=== PATIENT | female | born 1985 | race Caucasian/White ===

== ENCOUNTER 2016-10-05 12:12 | Emergency (ER) | payer OTHER ==
[~2016-10-05 12:12] MED LIST: ACET50TA PO; ANUS2.5C2 EXT; DOCU10ELUD PO; IBUP600T26 PO; MOM30SS PO
[2016-10-05] MEDS ORDERED: KETOROLAC 30 MG/ML VIAL (J1885) IM ONE (12:45)
--- NOTE | 2016-10-05 13:45 | REP ---
CHEST, PORTABLE, SINGLE VIEW: COMPARISON: 04/28/2015. There is no evidence of acute infiltrate. No pleural effusion is seen. The heart is normal in size. The mediastinal silhouette is unremarkable. The visualized osseous structures are intact. IMPRESSION: No acute pulmonary disease. Signed by Spike Vaughn MD 10/05/2016 05:06 P
[2016-10-05] MEDS ORDERED: BICILLIN L-A 2,400,000 UNIT/4 ML SYRINGE (J0561-24)PENICILLIN G BENZATINE IM ONE (14:45)
[2016-10-05 15:50] VITALS: BP 147/67
--- NOTE | 2016-10-06 10:36 | ECGEPIP ---
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
== END 2016-10-05 16:24 | disposition home or self-care (01) ==
LOC: EDBD 12:12 → M ED 12:52
DX: J02.0 Streptococcal pharyngitis (principal); R07.9 Chest pain, unspecified; Z79.899 Other long term (current) drug therapy
CPT/HCPCS: 71010; 87804; 87880; 93005; 96372; 99283; J0561; J1885

== ENCOUNTER 2017-10-27 18:53 | Emergency (ER) | payer SELFPAY, OTHER | END 2017-10-27 21:51 | disposition home or self-care (01) | LOC: M ED 18:53 | DX: H60.92 Unspecified otitis externa, left ear (principal); H66.92 Otitis media, unspecified, left ear; J30.2 Other seasonal allergic rhinitis | CPT/HCPCS: 99282 ==

== ENCOUNTER → 2018-06-08 | Outpatient (REF) | payer OTHER ==
[2018-06-08 19:40] LABS: HEMATOCRIT 43.8 % (36.0-47.0); HEMOGLOBIN 13.8 g/dl (12.0-15.5); MEAN CORPUSCULAR HEMOGLOBIN 25.6 pg (27.0-33.0); MEAN CORPUSCULAR HGB CONC 31.5 g/dl (32.0-36.5); MEAN CORPUSCULAR VOLUME 81.3 fl (80.0-96.0); PLATELET COUNT, AUTOMATED 228 10^3/uL (150-450); RED BLOOD COUNT 5.39 10^6/uL (4.00-5.40); RED CELL DISTRIBUTION WIDTH 13.2 % (11.5-14.5); WHITE BLOOD COUNT 5.6 10^3/uL (4.0-10.0)
[2018-06-08 20:12] LABS: ALBUMIN 3.3 GM/DL (3.2-5.2); ALBUMIN/GLOBULIN RATIO 0.92 (1.00-1.93); ALKALINE PHOSPHATASE 62 U/L (45-117); ALT/SGPT 34 U/L (12-78); ANION GAP 9 MEQ/L (8-16); AST/SGOT 23 U/L (7-37); BILIRUBIN,TOTAL 0.5 MG/DL (0.2-1.0); BLOOD UREA NITROGEN 7 MG/DL (7-18); CALCIUM LEVEL 8.6 MG/DL (8.5-10.1); CARBON DIOXIDE LEVEL 26 MEQ/L (21-32); CHLORIDE LEVEL 106 MEQ/L (98-107); CHOLESTEROL LEVEL 156 MG/DL (<200); CHOLESTEROL RISK RATIO 3.804 (<5); CREATININE FOR GFR 0.84 MG/DL (0.55-1.30); GLOMERULAR FILTRATION RATE > 60.0 (>60); GLUCOSE, FASTING 89 MG/DL (70-100); HDL CHOLESTEROL 41 MG/DL (>40); LDL CHOLESTEROL 97 MG/DL (<100); NON-HDL-C 115 MG/DL; POTASSIUM SERUM 3.7 MEQ/L (3.5-5.1); SODIUM LEVEL 141 MEQ/L (136-145); TOTAL 25(OH) VITAMIN D 23.4 NG/ML (30.0-100.0); TOTAL PROTEIN 6.9 GM/DL (6.4-8.2); TRIGLYCERIDES LEVEL 90 MG/DL (<150)
== END ==
LOC: M SFHCCLAY 10:15
DX: J32.9 Chronic sinusitis, unspecified (principal); Z13.6 Encounter for screening for cardiovascular disorders; Z13.21 Encounter for screening for nutritional disorder; R53.83 Other fatigue

== ENCOUNTER → 2020-09-17 | Outpatient (REF) | payer BC, OTHER ==
[~2020-09-17] MED LIST changes: -ACET50TA PO; +BACT800T5 PO; -DOCU10ELUD PO; +DOCU5LIQ PO; +FLON1SPR; +MAPA500T17 PO; +[UNRECOGNIZED DRUG - OTHER] OD
[2020-09-17 11:39] LABS: BASO # 0.1 10^3/uL (0.0-0.2); BASO % 0.8 % (0.0-1.0); EOS # 0.2 10^3/uL (0.0-0.5); EOS % 2.4 % (0.0-3.0); HEMATOCRIT 42.9 % (36.0-47.0); HEMOGLOBIN 13.6 g/dl (12.0-15.5); LYMPH # 2.5 10^3/uL (1.5-5.0); LYMPH % 28.3 % (24.0-44.0); MEAN CORPUSCULAR HGB CONC 31.7 g/dl (32.0-36.5); MEAN CORPUSCULAR VOLUME 81.9 fl (80.0-96.0); MONO # 0.7 10^3/uL (0.0-0.8); MONO % 7.4 % (0.0-5.0); NEUTROPHILS # 5.4 10^3/uL (1.5-8.5); NEUTROPHILS % 60.9 % (36.0-66.0); PLATELET COUNT, AUTOMATED 232 10^3/uL (150-450); RED BLOOD COUNT 5.24 10^6/uL (4.00-5.40); WHITE BLOOD COUNT 8.9 10^3/uL (4.0-10.0)
[2020-09-17 12:29] LABS: ALBUMIN 3.4 GM/DL (3.2-5.2); ALT/SGPT 19 U/L (12-78); BILIRUBIN,TOTAL 0.4 MG/DL (0.2-1.0); BLOOD UREA NITROGEN 6 MG/DL (7-18); CALCIUM LEVEL 8.9 MG/DL (8.5-10.1); CARBON DIOXIDE LEVEL 29 MEQ/L (21-32); CHLORIDE LEVEL 104 MEQ/L (98-107); CHOLESTEROL LEVEL 159 MG/DL (<200); CHOLESTEROL RISK RATIO 4.297 (<5); CREATININE FOR GFR 0.73 MG/DL (0.55-1.30); FREE T4 1.09 NG/DL (0.76-1.46); GLOMERULAR FILTRATION RATE > 60.0 (>60); GLUCOSE, FASTING 97 MG/DL (70-100); HDL CHOLESTEROL 37 MG/DL (>40); LDL CHOLESTEROL 93 MG/DL (<100); NON-HDL-C 122 MG/DL; POTASSIUM SERUM 3.8 MEQ/L (3.5-5.1); SODIUM LEVEL 140 MEQ/L (136-145); THYROID STIMULATING HORMONE 0.904 uIU/ML (0.358-3.740); TOTAL 25(OH) VITAMIN D 24.9 NG/ML (30.0-100.0); TOTAL PROTEIN 6.4 GM/DL (6.4-8.2); TRIGLYCERIDES LEVEL 144 MG/DL (<150)
== END ==
LOC: M SFHCCLAY 08:36
PROVIDERS: ATTEND Physician Assistant
DX: Z00.00 Encounter for general adult medical examination without abnormal findings (principal); E66.09 Other obesity due to excess calories

== ENCOUNTER → 2020-09-22 | Outpatient (CLI) | payer BC ==
--- NOTE | 2020-09-22 10:10 | REP ---
INDICATION: N63.20 LT BREAST LUMP. Cyclic Leonor present left central breast lump. The patient reports that this is not palpable at the time of this examination. COMPARISON: no comparison breast imaging. TECHNIQUE: Bilateral CC and MLO) view(s) were taken. 3D tomography was carried out. Targeted left breast sonography was performed. FINDINGS: Breast parenchyma is heterogeneously dense in a pattern which may inhibit the sensitivity of mammography. No dominant density is seen on either side. No architectural distortion, mass, microcalcification, or worrisome skin changes appreciated. No mammographically suspicious finding. The Volpara volumetric breast density pattern is C. Targeted left breast sonographic findings: Scanning in the left central breast in the area where the patient intermittently feels a lump shows heterogeneous fibroglandular background echotexture. No cyst or mass is seen by ultrasound. In the retroareolar region, there are 1 or 2 mildly dilated subareolar ducts in the left breast. No suspicious sonographic finding.. IMPRESSION: BIRADS/ACR category 2 benign mammographic and sonographic findings.. This patient's Tyrer-Cuzick lifetime breast cancer risk assessment score is 10.9%. This mammogram was interpreted with the aid of an FDA-approved computer-aided detection system. The patient states she had a clinical breast exam in over a year ago. The patient letter being requested is M2 dense. RECOMMENDATION: Repeat screening mammography recommended 1 year (for women over 40). Clinical follow-up regarding the possibility of a palpable lump. This negative report should not dissuade 1 from biopsy of a palpable lump depending on his clinical characteristics. <Electronically signed by Kenny Priest > 09/22/20 1758
== END ==
LOC: M WHC 08:23
PROVIDERS: ATTEND Physician Assistant
DX: N63.20 Unspecified lump in the left breast, unspecified quadrant (principal)
CPT/HCPCS: 76642; 77066; G0279

== ENCOUNTER 2023-01-05 19:25 | Emergency (ER) | payer BC, OTHER ==
[~2023-01-05] VITALS: Ht 172.7 cm; Wt 98.3 kg
[2023-01-05] MEDS ORDERED: PROPARACAINE 0.5% OPHTH SOL 15ML OS ONE (20:10)
[2023-01-05] MEDS ORDERED: FLUORESCEIN OPHTH 1MG STRIP OS ONE (20:10)
[2023-01-05] MEDS ORDERED: OFLOXACIN 0.3 % (OCUFLOX) OPTH SOL 5ML OS ONE (20:35)
[2023-01-05] MEDS ORDERED: CETI-24 PO (20:36)
[2023-01-05] MEDS ORDERED: OFLO5DRO OS (20:38)
[2023-01-05 21:00] VITALS: BP 135/78
== END 2023-01-05 21:03 | disposition home or self-care (01) ==
LOC: M ED 19:25
DX: S05.02XA Injury of conjunctiva and corneal abrasion without foreign body, left eye, initial encounter (principal); X58.XXXA Exposure to other specified factors, initial encounter; Y92.89 Other specified places as the place of occurrence of the external cause; Y93.89 Activity, other specified; Y99.0 Civilian activity done for income or pay; Z79.899 Other long term (current) drug therapy